=== PATIENT | female | born 1980 | race Caucasian/White ===

== ENCOUNTER 2023-06-26 13:12 | Emergency (ER) | payer BC ==
[~2023-06-26] VITALS: Ht 165.1 cm; Wt 99.8 kg
[2023-06-26 13:20] VITALS: BP 147/77; PULSE 67; RESP 16; TEMP 97.7; TEMP 98.3; O2SAT 95
[2023-06-26 13:30] VITALS: O2SAT 95
[2023-06-26] MEDS ORDERED: DIPH25TA53 PO (13:54)
[2023-06-26] MEDS ORDERED: PRED20TA5 PO (13:54)
[2023-06-26] MEDS ORDERED: CIPR500T4 PO (14:03)
== END 2023-06-26 14:21 | disposition home or self-care (01) ==
LOC: MED 13:12
DX: R21 Rash and other nonspecific skin eruption (principal); R06.89 Other abnormalities of breathing; R13.10 Dysphagia, unspecified; T36.1X5A Adverse effect of cephalosporins and other beta-lactam antibiotics, initial encounter; N39.0 Urinary tract infection, site not specified; Z98.890 Other specified postprocedural states; Z79.899 Other long term (current) drug therapy; Z88.0 Allergy status to penicillin; Z88.1 Allergy status to other antibiotic agents; Y92.89 Other specified places as the place of occurrence of the external cause
CPT/HCPCS: 81002; 81025; 99283